=== PATIENT | male | born 1930 | race Caucasian/White ===

== ENCOUNTER 2019-02-17 18:05 | Emergency (ER) | payer BC, OTHER ==
[~2019-02-17] VITALS: Ht 177.8 cm; Wt 81.6 kg
--- NOTE | 2019-02-17 18:39 | ED Fall/Injury ---
General Chief Complaint: Upper Extremity Stated Complaint: FALL Source: patient, EMS, RN notes reviewed Exam Limitations: no limitations History of Present Illness Date Seen by Provider: Feb 17, 2019 Time Seen by Provider: 18:31 Initial Comments Patient brought to the ED by EMS p/ reportedly loosing his balance while going down some rock stairs and fell backwards down approximately 5-6 stairs. Denies hitting his head. Denies any head or neck pain. Denies any LOC. States he is on a "blood thinner". States he hurt his left shoulder although he denies any pain presently. Occurred: just prior to arrival Injuries/Pain Location: upper extremity (LEFT SHOULDER) Context: lost balance Loss of Consciousness: no loss of consciousness Associated Symptoms (Fall): Denies Symptoms Allergies and Home Medications Allergies Uncoded Allergies: PENICILLIN (Allergy, Unknown, 02/17/19) SHELLFISH (Allergy, Unknown, 02/17/19) SULFA (Allergy, Unknown, 02/17/19) Patient Home Medication List Home Medication List Reviewed: No Review of Systems Review of Systems Constitutional: no symptoms reported Musculoskeletal: other (states he hurt his left shoulder ) All Other Systems Reviewed Negative Unless Noted: Yes (Negative excepted noted.) Past Auihkqj-Opnfpn-Kxyivu Hx Patient Social History Recent Foreign Travel: No Contact w/Someone Who Travel: No Physical Exam Vital Signs Vital Signs - First Documented 02/17/19 18:05 Temp 97.4 Pulse 61 Resp 16 B/P (MAP) 151/69 (96) Pulse Ox 100 O2 Delivery Room Air Capillary Refill : Height, Weight, BMI Height: '" Weight: lbs. oz. kg; BMI Method: General Appearance: WD/WN, no apparent distress, thin HEENT: PERRL/EOMI, normal ENT inspection, pharynx normal Neck: non-tender, full range of motion, supple, normal inspection Cardiovascular: regular rate, rhythm Respiratory: no respiratory distress Rectal: deferred Extremities: other (left shoulder is a little tender but s/ obvious visual or palpable dwayne pathos. Is limited in ability to left his left arm above his head. ) Neurologic/Psychiatric: no motor/sensory deficits, alert, oriented x 3 Skin: warm/dry Bill Coma Score Best Eye Response: (4) Open Spontaneously Best Verbal Response: (5) Oriented Best Motor Response: (6) Obeys Commands Bill Total: 15 Progress/Results/Core Measures Results/Orders Lab Results Laboratory Tests Test 02/17/19 18:38 Range/Units Glucometer 88 70-110 MG/DL My Orders Orders - EMILY COOLEY DO Ct Head/Cervical Spine Wo (02/17/19 18:28) Shoulder 3 View Left (02/17/19 18:28) Acetaminophen Tablet (Tylenol Tablet) (02/17/19 20:15) Medications Given in ED Current Medications Medications Dose Ordered Sig/German Route Start Time Stop Time Status Last Admin Dose Admin Acetaminophen 500 mg ONCE ONCE PO 02/17/19 20:15 02/17/19 20:16 DC 02/17/19 20:32 500 MG Vital Signs/I&O 02/17/19 18:05 Temp 97.4 Pulse 61 Resp 16 B/P (MAP) 151/69 (96) Pulse Ox 100 O2 Delivery Room Air Progress Progress Note : Progress Note Patient seemed more interested in getting something to eat rather than anything else. Diagnostic Imaging Diagonstic Imaging: Xray, CT Plain Films/CT/US/NM/MRI: c-spine (nothing acute), head (nothing acute), other (shoulder was negative for fracture.) Departure Impression Primary Impression: Contusion of left shoulder Additional Impression: Fall (on) (from) unspecified stairs and steps, initial encounter Disposition: 01 HOME, SELF-CARE Condition: Stable Departure-Patient Inst. Decision time for Depature: 19:34 Referrals: NO,LOCAL PHYSICIAN (PCP) Primary Care Physician Patient Instructions: Shoulder Pain (DC) Add. Discharge Instructions: All discharge instructions reviewed with patient and/or family. Voiced understanding. Recommend 1000 MG of Tylenol every 6 hours as needed for any pain/discomfort. Will need to follow up with your PCP if further problems with your shoulder. EMILY COOLEY DO Feb 17, 2019 18:39
--- NOTE | 2019-02-17 19:16 | Diagnostic Imaging Report ---
PROCEDURE: CT head and CT cervical spine without contrast. TECHNIQUE: Multiple contiguous axial images were obtained through the brain and cervical spine without the use of intravenous contrast. Sagittal and coronal reformations through the cervical spine were then performed. Auto Exposure Controls were utilized during the CT exam to meet ALARA standards for radiation dose reduction. INDICATION: Fall FINDINGS: The ventricles are normal in size, shape and position. There is age-related atrophy. There is no acute parenchymal hemorrhage, edema or mass. There is no extra-axial mass or hemorrhage. There is no skull fracture. There is normal height and alignment of the cervical vertebral bodies. There is disc space narrowing at all levels with mild spondylosis. There is no fracture or other acute abnormality seen. IMPRESSION: CT of the head shows atrophy with no acute abnormality. CT of the cervical spine shows degenerative changes with no acute abnormality. Dictated by: Dictated on workstation # [id number]
--- NOTE | 2019-02-17 19:21 | Diagnostic Imaging Report ---
INDICATION: Left shoulder pain post fall. TECHNIQUE: Three views of the left shoulder CORRELATION STUDY: None FINDINGS: The glenohumeral and acromioclavicular alignment are maintained and unremarkable. There is no evidence for acute fracture or dislocation. There is mild bony demineralization. The visualized soft tissues are unremarkable. IMPRESSION: 1. Negative for acute fracture or dislocation of the shoulder. Dictated by: Dictated on workstation # [id number]
[2019-02-17] MEDS ORDERED: ACETAMINOPHEN 500 MG TAB (TYLENOL) PO ONE (20:15)
[2019-02-17 21:05] VITALS: BP 155/67
== END 2019-02-17 21:13 | disposition home or self-care (01) ==
LOC: ER FS 18:07
DX: S40.012A Contusion of left shoulder, initial encounter (principal); R40.2142 Coma scale, eyes open, spontaneous, at arrival to emergency department; R40.2252 Coma scale, best verbal response, oriented, at arrival to emergency department; R40.2362 Coma scale, best motor response, obeys commands, at arrival to emergency department; Z88.0 Allergy status to penicillin; Z88.2 Allergy status to sulfonamides; W10.8XXA Fall (on) (from) other stairs and steps, initial encounter
CPT/HCPCS: 70450; 72125; 73030; 82962